=== PATIENT | female | born 1965 | race Caucasian/White ===

== ENCOUNTER → 2016-08-19 | Outpatient (CLI) | payer BC ==
--- NOTE | 2016-08-19 13:42 | KCIC ---
Bilateral digital screening mammograms with CAD: HISTORY Routine screening. COMPARISON Comparison is made to previous studies dated 08/18/2015, 09/03/2014, 08/19/2013 and 08/03/2012. FINDINGS Breast density category B. The skin and nipples show no abnormalities. No abnormal lymph nodes are seen in the axilla. The breast parenchyma shows scattered fibroglandular density. There continues to be some asymmetric parenchyma in the upper outer quadrant of the right breast. There continues to be a subtle area of nodularity at approximately the 1 o'clock position of the left breast posteriorly seen best on CC view which is unchanged. There are no new dominant masses, suspicious calcifications or architectural distortions. IMPRESSION No evidence of malignancy. Recommend routine annual mammographic screening. This study was interpreted with the benefit of Computerized Aided Detection (CAD). Mammography is not 100% sensitive in detecting breast cancer. Therefore, a self breast exam and a clinical breast exam are very important. A negative mammogram does not negate a clinically suspicious finding and should not result in a delay in biopsying a clinically suspicious abnormality. BI-RADS category 2: Benign. This patient's information has been entered into a reminder system for the patient to be notified with the results of this examination and a target date for her next mammograms. Electronically signed by: Dayana Gonsalez MD (Aug 19, 2016 13:40:45)
== END | disposition home or self-care (01) ==
LOC: KCIC MAMMO 11:17
PROVIDERS: ATTEND Obstetrics & Gynecology
DX: Z12.31 Encounter for screening mammogram for malignant neoplasm of breast (principal)
CPT/HCPCS: 77052; G0202; 77067

== ENCOUNTER 2018-03-19 16:07 | Emergency (ER) | payer OTHER ==
[2018-03-19] MEDS: diazePAM 5 MG TABLET PO (16:55)
[2018-03-19] MEDS: fentaNYL PF VIAL 100 MCG/2 ML VIAL IM (16:55)
[2018-03-19] MEDS: KETOROLAC 60 MG/2 ML INJ. IM (16:56)
[2018-03-19] MEDS: DEXAMETHASONE SOD PHOS 20 MG/5 ML VIAL. IM (16:56)
[2018-03-19 17:16] LABS: BILIRUBIN,URINE NEGATIVE (NEG); CLARITY,URINE CLEAR; COLOR,URINE GREEN; GLUCOSE,URINE NEGATIVE (NEG); NITRITE,URINE NEGATIVE (NEG); PROTEIN,URINE NEGATIVE (NEG-TRACE); UROBILINOGEN,URINE 0.2 mg/dL (0.2 mg/dL)
[2018-03-19 17:23] LABS: BACTERIA,URINE 0 /HPF (0-FEW); RBC,URINE 0 /HPF (0-2); SQUAMOUS EPITHELIAL CELL,UR MOD /LPF; WBC,URINE OCC /HPF (0-4)
== END 2018-03-19 19:52 | disposition home or self-care (01) ==
LOC: ER 16:07
DX: S39.012A Strain of muscle, fascia and tendon of lower back, initial encounter (principal); Z88.2 Allergy status to sulfonamides; X50.0XXA Overexertion from strenuous movement or load, initial encounter; Y93.89 Activity, other specified; Y99.8 Other external cause status; Y92.89 Other specified places as the place of occurrence of the external cause
CPT/HCPCS: 72100; 81001; 96372; 99285; J1100; J1885; J3010